=== PATIENT | male | born 1990 | race Two or more races ===

== ENCOUNTER 2024-03-27 03:49 | Emergency (ER) | payer SELFPAY ==
[~2024-03-27] VITALS: Ht 172.7 cm; Wt 78.2 kg
[2024-03-27 08:07] VITALS: BP 122/74; PULSE 68; RESP 18; TEMP 98.8; O2SAT 98
[2024-03-27 09:06] LABS: Basophils # (auto) 0.1 10 ^3/uL (0-0.2); Eosinophils # (auto) 0.1 10 ^3/uL (0-0.8); Hematocrit 43.7 % (41.0-53.0); Lymphocytes # (auto) 2.4 10 ^3/uL (0.4-5.4); Lymphocytes % (auto) 33.9 % (10.0-50.0); Mean Corpuscular Hemoglobin 29.8 pg (28.0-32.0); Mean Corpuscular Hgb Conc. 34.4 g/dL (32.0-36.0); Mean Corpuscular Volume 86.5 fL (80.0-100.0); Monocytes # (auto) 0.4 10 ^3/uL (0-1.3); Monocytes % (auto) 6.3 % (0.0-12.0); Neutrophils # (auto) 4.1 10 ^3/uL (1.6-8.6); Neutrophils % (auto) 57.8 % (37.0-80.0); Nucleated Red Blood Cells % 0.1 %; Red Blood Cells 5.05 10^6/uL (4.5-5.90); Red Cell Distribution Width 13.3 % (11.8-14.3); White Blood Cell 7.1 10^3/uL (4.4-10.8)
[2024-03-27 09:12] LABS: Urine Bacteria None Seen /hpf (None Seen); Urine WBC None Seen /hpf (0 - 3)
[2024-03-27 09:15] LABS: Chloride 108 mmol/L (98-107); Potassium 4.1 mmol/L (3.5-5.1); Sodium 138 mmol/L (136-145)
[2024-03-27 09:16] LABS: Anion Gap 4 (5-15); Calcium 9.6 mg/dL (8.7-10.4); Carbon Dioxide 26 mmol/L (20-30)
[2024-03-27 09:21] LABS: BUN/Creatinine Ratio 10.7 (10.0-20.0); Blood Urea Nitrogen 9 mg/dL (9-23); Glucose 103 mg/dL (74-106)
[2024-03-27 09:53] LABS: Urine Blood Negative /uL (Negative); Urine Clarity Clear (Clear); Urine Color Yellow (Yellow); Urine Mucus FEW (None Seen); Urine Protein, UAD Negative (Negative); Urine Specific Gravity 1.029 (1.001-1.035); Urine Urobilinogen Normal (Negative)
[2024-03-27] MEDS ORDERED: LIDO5DIS21 TOP (10:06)
== END 2024-03-27 10:18 | disposition home or self-care (01) ==
LOC: ER 03:49
DX: S33.5XXA Sprain of ligaments of lumbar spine, initial encounter (principal); X58.XXXA Exposure to other specified factors, initial encounter; Y93.89 Activity, other specified; Y92.89 Other specified places as the place of occurrence of the external cause; Y99.8 Other external cause status
CPT/HCPCS: 36415; 72100; 80048; 81001; 85025

== ENCOUNTER 2024-08-01 05:11 | Emergency (ER) | payer MEDICAID, OTHER ==
[~2024-08-01] VITALS: Ht 172.7 cm; Wt 75.0 kg
[~2024-08-01 05:11] MED LIST: LIDO5DIS21 TOP
[2024-08-01 06:45] VITALS: BP 142/88; PULSE 105; RESP 19; TEMP 97.8; O2SAT 98
--- NOTE | 2024-08-01 06:57 | ED.PDOC ---
Musculoskeletal HPI Comments 34 y/o male pt presents to the clinic for bilateral hand pain and right foot pain. Pt reports that the pain started approximately 2 weeks ago. Pt reports that the pain in his hands is in the 4th digit of bilateral hands and that the pain increases when out in the cold. Pt believes that the pain is due to folding a lot of blankets and clothing. Pt reports that he has been living on and off the streets but that 2 weeks ago he moved back home with his mother. Pt is most concerned with the pain in his right foot, 2nd and 3rd digits. Pt reports pain and decreased sensation. Pt feels like those toes are "." Chief Complaint: Cold Exposure Time Seen by MD: 06:47 Primary Care Provider: None Reviewed Notes: Nurses Notes, Medications Allergies: Coded Allergies: NO KNOWN ALLERGIES (Unverified , 03/27/24) Home Meds Active Scripts Ibuprofen Micronized (Ibuprofen) 600 Mg Tab, 600 MG PO TID PRN for 30 Days, #90 TAB 0 Refills Prov:CARLOS SALES COMPLEX CARE NURSE PRACTITIONER 08/01/24 Lidocaine (LIDODERM 5% TOPICAL PATCH) 1 Patch Ph, 1 PATCH TOP DAILY for 30 Days, #30 PATCH 0 Refills Prov:NATALIA SELLERS RESIDENCE COUNSELOR 03/27/24 Information Source: Patient Mode of Arrival: Ambulatory Past Medical History PAST MEDICAL HISTORY: Denies Surgical History: Denies all surgeries Family History Family History: Reviewed,noncontributory to illness Social History Smoker: Non-Smoker Alcohol: Denies ETOH Use Drugs: Denies Drug Use Constitutional: denies: chills, diaphoresis, fatigue, fever, malaise, sweats, weakness, others EENTM: denies: blurred vision, double vision, ear bleeding, ear discharge, ear drainage, ear pain, ear ringing, eye pain, eye redness, hearing loss, mouth pain, mouth swelling, nasal discharge, nose bleeding, nose congestion, nose pain, photophobia, tearing, throat pain, throat swelling, voice changes, others Respiratory: denies: cough, hemoptysis, orthopnea, SOB at rest, shortness of breath, SOB with excertion, stridor, wheezing, others Cardiovascular: denies: chest pain, dizzy spells, diaphoresis, Dyspnea on exertion, edema, irregular heart beat, left arm pain, lightheadedness, palpitations, PND, syncope, others Gastrointestinal: denies: abdomen distended, abdominal pain, blood streaked bowels, constipated, diarrhea, dysphagia, difficulty swallowing, hematemesis, melena, nausea, poor appetite, poor fluid intake, rectal bleeding, rectal pain, vomiting, others Genitourinary: denies: burning, dysuria, flank pain, frequency, hematuria, incontinence, penile discharge, penile sore, pain, testicle pain, testicle swelling, urgency, others Neurological: denies: dizziness, fainting, headache, left sided numbness, left sided weakness, numbness, paresthesia, pre-existing deficit, right sided numbness, right sided weakness, seizure, speech problems, tingling, tremors, weakness, others Musculoskeletal: reports: joint pain (pain in the 2nd and 3rd digitd of the right foot and the 3rd digit of bilateral hands) Integumetry: denies: bruises, change in color, change in hair/nails, dryness, laceration, lesions, lumps, rash, wounds, others Allergic/Immunocompromised: denies: Difficulty Healing, Frequent Infections, Hives, Itching, others Hematologic/Lymphatic: denies: anemia, blood clots, easy bleeding, easy bruising, swollen glands, others Endocrine: denies: excessive hunger, excessive sweating, excessive thirst, excessive urination, flushing, intolerance to cold, intolerance to heat, unexplained weight gain, unexplained weight loss, others Psychiatric: denies: anxiety, bipolar disorder, depression, hopeless, panic disorder, schizophrenia, sleepless, suicidal, others All Other Systems: Reviewed and Negative Physical Exam General Appearance: No Apparent Distress, Normal HEENT: Normal ENT Inspection, Pharynx Normal, TMs Normal Neck: Full Range of Motion, Non-Tender, Normal, Normal Inspection Respiratory: Chest Non-Tender, Lungs Clear, No Accessory Muscle Use, No Respiratory Distress, Normal Breath Sounds Cardiovascular: No Edema, No JVD, No Murmur, No Gallop, Normal Peripheral Pulses, Regular Rate/Rhythm Breast Exam: Deferred Gastrointestinal: No Organomegaly, Non Tender, No Pulsatile Mass, Normal Bowel Sounds, Soft Genitalia: Deferred Pelvic: Deferred Rectal: Deferred Extremities: No calf tenderness, Normal capillary refill, Normal inspection, Normal range of motion, Non-tender, No pedal edema Musculoskeletal : Location: Right Extremity Location: Foot Apperance: Normal, Tenderness: Mild (2nd and 3rd digit of the right foot) Neurologic: Alert, orthodontic assistant II-XII nml as Tested, No Motor Deficits, Normal Affect, Normal Mood, No Sensory Deficits Cerebellar Function: Normal Reflexes: Normal Skin: Dry, Normal Color, Warm Lymphatic: No Adenopathy Was a procedure done? Was a procedure done?: No Differential Diagnosis EXT Differential Diagnosis: Fracture, Sprain, Contusion, Arthritis X-Ray, Labs, Meds, VS Vital Signs Date Time Temp Pulse Resp B/P (MAP) Pulse Ox O2 Delivery O2 Flow Rate FiO2 08/01/24 06:45 97.8 105 19 142/88 (106) 98 97.8 08/01/24 06:45 105 19 98 Room Air 08/01/24 05:23 97.8 105 19 142/88 (106) 98 PATIENT: TANNER PITTMAN JRACCT: [id number]: [id number] : 1990 LOC: ER ROOM / BED: / AGE / SEX: 34 / M ADM STATUS: REG ER SERVICE 4 ORDERING PHYSICIAN: CARLOS SALES PROCEDURE(s): RFOOT - R FOOT 3 VIEW XRAY REASON: decreased sensation to the second and thrid digit of foot ORDER NUMBER(s): [id number], ACCESSION NUMBER(s): [id number] PROCEDURE: Right foot radiographs. INDICATION: Decreased sensation to the second and thrid digit of foot TECHNIQUE: 3 views of the right foot were obtained. COMPARISON: None FINDINGS: There is no evidence of fracture or dislocation. Joint spaces are maintained. The soft tissues are unremarkable. IMPRESSION: 1. No fracture or dislocation. ATED BY: ANAMIKA GARNICA MD DICTATED DATE/TIME: 08/01/24735 SIGNED BY: ANAMIKA GARNICA MD SIGNED DATE/TIME: 08/01/24735 CC: X-Ray, Labs, Meds, VS Comment On re-evaluation patient has symptomatic improvement. Patient is stable for discharge at this time. All test results and diagnostic imaging have been interpreted. All diagnostic findings, discharge care, and education instruction provided to the patient. Follow-up with PCP in 2-3 days Patient verbalized understanding, discharge instructions and agrees to treatment plan Vital signs are stable Patient is ambulatory Patient advised of which symptoms necessitate a return visit to the emergency room. Patient to return emergency room for any new worsening symptoms. Patient is aware that the purpose of this visit is for an acute medical emergency requiring emergent stabilization. Chronic conditions, including malignancies have not been ruled out. Patient is instructed to follow up with P CP as directed for continued care and workup. If unable to arrange follow up, patient is to return to the emergency room for reassessment. Patient was given verbal and written discharge instructions and acknowledges understanding Time of 1ST Reevaluation: 07:25 Reevaluation 1ST: Improved Patient Education/Counseling: Diagnosis, Treatment, Prognosis Family Education/Counseling: No Family Present Departure 1 Departure Time of Disposition: 07:47 Impression: Primary Impression: Foot pain, right Additional Impressions: Finger pain, left Finger pain, right Disposition: 01 HOME / SELF CARE / HOMELESS Condition: Stable e-Prescriptions Ibuprofen Micronized (Ibuprofen) 600 Mg Tab 600 MG PO TID PRN for 30 Days, #90 TAB 0 Refills Prov: CARLOS SALES 08/01/24 Discharged With: Self Critical Care Note Critical Care Time?: No Stability Stability form required: No Heart Score Heart Score: Heart Score Response (Comments) Value History N/A 0 EKG N/A 0 Age N/A 0 Risk Factors N/A 0 Troponin N/A 0 Total 0 CARLOS SALES [facility] Aug 01, 2024 06:57
--- NOTE | 2024-08-01 07:38 | DVH ---
PROCEDURE: Right foot radiographs. INDICATION: Decreased sensation to the second and thrid digit of foot TECHNIQUE: 3 views of the right foot were obtained. COMPARISON: None FINDINGS: There is no evidence of fracture or dislocation. Joint spaces are maintained. The soft tis sues are unremarkable. IMPRESSION: 1. No fracture or dislocation.
[2024-08-01] MEDS ORDERED: IBUP1TAB5 PO (07:47)
== END 2024-08-01 08:17 | disposition home or self-care (01) ==
LOC: ER 05:11
DX: M79.671 Pain in right foot (principal); M79.644 Pain in right finger(s); M79.645 Pain in left finger(s); Z79.899 Other long term (current) drug therapy
CPT/HCPCS: 73630

== ENCOUNTER 2024-09-12 01:05 | Emergency (ER) | payer MEDICAID ==
[~2024-09-12] VITALS: Ht 172.7 cm; Wt 69.9 kg
[~2024-09-12 01:05] MED LIST changes: +IBUP1TAB5 PO
[2024-09-12 02:47] VITALS: BP 137/91; PULSE 88; RESP 20; TEMP 97.4; O2SAT 100
[2024-09-12] MEDS ORDERED: ACET500T58 PO (03:05)
--- NOTE | 2024-09-12 03:05 | ED.PDOC ---
Musculoskeletal HPI Comments 34-YEAR-OLD MALE PRESENTS TO ER WITH COMPLAINTS OF BILATERAL KNEE PAIN X3 DAYS. PATIENT REPORTS THAT HE STARTED EXPERIENCING BILATERAL KNEE PAIN X3 DAYS "DUE TO THE COLD WEATHER". DENIES ANY TRAUMA/FALLS. HE RATES HIS CURRENT PAIN A 7/10 TO BILATERAL KNEES WITHOUT RADIATION. PATIENT PRESENTS TO ER AMBULATORY ON ARRIVAL, WITH STEADY GAIT, IN NO DISTRESS. DENIES SKIN CHANGES, NUMBNESS/TINGLING, FEVER, HEAD INJURY OR ANY FURTHER SYMPTOMS/COMPLAINTS Chief Complaint: Head Injury Time Seen by MD: 01:25 Primary Care Provider: None Reviewed Notes: Nurses Notes, Medications, Allergies Allergies: Coded Allergies: NO KNOWN ALLERGIES (Unverified , 03/27/24) Home Meds Active Scripts Acetaminophen (Acetaminophen) 500 Mg Tab, 500 MG PO Q4HPRN PRN, #30 TAB 0 Refills Prov:KELLY LANZA 09/12/24 Ibuprofen Micronized (Ibuprofen) 600 Mg Tab, 600 MG PO TID PRN for 30 Days, #90 TAB 0 Refills Prov:CARLOS SALES 08/01/24 Lidocaine (LIDODERM 5% TOPICAL PATCH) 1 Patch Ph, 1 PATCH TOP DAILY for 30 Days, #30 PATCH 0 Refills Prov:NATALIA SELLERS NP 03/27/24 Information Source: Patient Mode of Arrival: Ambulatory Past Medical History PAST MEDICAL HISTORY: Denies Surgical History: Denies all surgeries Family History Family History: Unknown Social History Smoker: Non-Smoker Alcohol: Denies ETOH Use Drugs: Denies Drug Use Lives In: Homeless Constitutional: denies: chills, diaphoresis, fatigue, fever, malaise, sweats, weakness, others EENTM: denies: blurred vision, double vision, ear bleeding, ear discharge, ear drainage, ear pain, ear ringing, eye pain, eye redness, hearing loss, mouth pain, mouth swelling, nasal discharge, nose bleeding, nose congestion, nose pain, photophobia, tearing, throat pain, throat swelling, voice changes, others Respiratory: denies: cough, hemoptysis, orthopnea, SOB at rest, shortness of breath, SOB with excertion, stridor, wheezing, others Cardiovascular: denies: chest pain, dizzy spells, diaphoresis, Dyspnea on exertion, edema, irregular heart beat, left arm pain, lightheadedness, palpitations, PND, syncope, others Gastrointestinal: denies: abdomen distended, abdominal pain, blood streaked bowels, constipated, diarrhea, dysphagia, difficulty swallowing, hematemesis, melena, nausea, poor appetite, poor fluid intake, rectal bleeding, rectal pain, vomiting, others Genitourinary: denies: burning, dysuria, flank pain, frequency, hematuria, incontinence, penile discharge, penile sore, pain, testicle pain, testicle swelling, urgency, others Neurological: denies: dizziness, fainting, headache, left sided numbness, left sided weakness, numbness, paresthesia, pre-existing deficit, right sided numbness, right sided weakness, seizure, speech problems, tingling, tremors, weakness, others Musculoskeletal: reports: others ( STATED IN HPI) Integumetry: denies: bruises, change in color, change in hair/nails, dryness, laceration, lesions, lumps, rash, wounds, others Allergic/Immunocompromised: denies: Difficulty Healing, Frequent Infections, Hives, Itching, others Hematologic/Lymphatic: denies: anemia, blood clots, easy bleeding, easy b ruising, swollen glands, others Endocrine: denies: excessive hunger, excessive sweating, excessive thirst, excessive urination, flushing, intolerance to cold, intolerance to heat, unexplained weight gain, unexplained weight loss, others Psychiatric: denies: anxiety, bipolar disorder, depression, hopeless, panic disorder, schizophrenia, sleepless, suicidal, others Physical Exam General Appearance: No Apparent Distress HEENT: PERRL/EOMI Neck: Full Range of Motion, Non-Tender, Normal Respiratory: Chest Non-Tender, Lungs Clear, No Accessory Muscle Use, No Respiratory Distress, Normal Breath Sounds Cardiovascular: No Murmur, No Gallop, Regular Rate/Rhythm Breast Exam: Deferred Gastrointestinal: NOT DONE Genitalia: Deferred Pelvic: Deferred Rectal: Deferred Extremities: No calf tenderness, Normal capillary refill, Normal range of motion, No pedal edema Musculoskeletal : Extremity Location: Knee (NO TTP TO BILATERAL KNEES NOTED. NEGATIVE ANTERIOR DRAWER TEST BILATERALLY. NEGATIVE CARLYLE'S TEST BILATERALLY. NO SKIN CHANGES TO BILATERAL KNEES APPRECIATED. PULSES INTACT. GAIT INTACT WITHOUT ABNORMALITY) Neurologic: Alert, medication aide II-XII nml as Tested, No Motor Deficits, Normal Affect, Normal Mood, No Sensory Deficits Cerebellar Function: Normal Reflexes: Normal Skin: Dry, Normal Color, Warm Peripheral Pulses: 2+ femoral (R), 2+ femoral (L), 2+ dorsalis pedis (R), 2+ dorsalis pedis (L) Lymphatic: No Adenopathy Was a procedure done? Was a procedure done?: No Sedation Sedation?: No Differential Diagnosis EXT Differential Diagnosis: Cellulitis, Fracture, Dislocation, Neurovascular injury X-Ray, Labs, Meds, VS Vital Signs Date Time Temp Pulse Resp B/P (MAP) Pulse Ox O2 Delivery O2 Flow Rate FiO2 09/12/24 02:47 97.4 88 20 137/91 (106) 100 97.4 09/12/24 01:19 100 Room Air 0 09/12/24 01:19 97.4 88 18 137/91 (106) 100 PATIENT NEUROVASCULARLY INTACT AND IN NO DISTRESS DURING ER VISIT/PRIOR TO DISCHARGE ADVISED ON REST/ NO STRENUOUS ACTIVITY AND ELEVATION ADVISED TO FOLLOW UP WITH PCP IN 1-2 DAYS PATIENT VERBALIZED UNDERSTANDING AND AGREEABLE WITH CURRENT PLAN OF CARE ADVISED TO RETURN TO ER IMMEDIATELY IF SYMPTOMS WORSEN Time of 1ST Reevaluation: 02:44 Reevaluation 1ST: N/A Patient Education/Counseling: Diagnosis, Treatment, Prognosis, Need For Follow Up Family Education/Counseling: No Family Present Departure 1 Departure Time of Disposition: 03:02 Impression: Primary Impression: Arthralgia of both knees Disposition: 01 HOME / SELF CARE / HOMELESS Condition: Stable e-Prescriptions Acetaminophen (Acetaminophen) 500 Mg Tab 500 MG PO Q4HPRN PRN, #30 TAB 0 Refills Prov: KELLY LANZA 09/12/24 Discharged With: Self Critical Care Note Critical Care Time?: No Stability Stability form required: No Heart Score Heart Score: Heart Score Response (Comments) Value History N/A 0 EKG N/A 0 Age N/A 0 Risk Factors N/A 0 Troponin N/A 0 Total 0 KELLY LANZA Sep 12, 2024 03:05
[2024-09-13] MEDS ORDERED: AUG875T PO (21:46)
[2024-09-13] MEDS ORDERED: IBUP-1456 PO (21:46)
== END 2024-09-12 03:43 | disposition home or self-care (01) ==
LOC: ER 01:05
DX: M25.562 Pain in left knee (principal); M25.561 Pain in right knee; Z79.899 Other long term (current) drug therapy; Z59.00 Homelessness unspecified

== ENCOUNTER 2024-09-13 19:18 | Emergency (ER) | payer MEDICAID ==
[~2024-09-13] VITALS: Ht 172.7 cm; Wt 71.7 kg
[~2024-09-13 19:18] MED LIST changes: +ACET500T58 PO
[2024-09-13 20:52] VITALS: BP 133/67; PULSE 92; RESP 19; TEMP 97.9; O2SAT 98
--- NOTE | 2024-09-13 21:01 | ED.PDOC ---
Eye-HPI HPI Comments This is a 34-year-old male presents to the ED chief complaint throat pain. He notes moderate to severe throat pain on and off x1 year. Difficulty swallowing. [place] dental pain 8/10 on pain scale throbbing in nature nonradiating type pain worse with cold and hot liquids. Fever or chills. Chest pain for the donna thing or shortness of breath. Chief Complaint: Sore Throat Time Seen by MD: 19:37 Primary Care Provider: None Reviewed Notes: Nurses Notes, Medications, Allergies Allergies: Coded Allergies: NO KNOWN ALLERGIES (Unverified , 03/27/24) Home Meds Active Scripts Ibuprofen (Ibuprofen) 800 Mg Tab, 1 TAB PO TID PRN for 4 Days, #12 TAB Prov:EDSON GLOVER SENIOR IT SECURITY ANALYST 09/13/24 Amoxicillin & Pot Clavulanate (AUGMENTIN TABLET) 875 Mg Tb, 1 TAB PO BID for 7 Days, #14 TAB Prov:EDSON GLOVER SENIOR IT SECURITY ANALYST 09/13/24 Acetaminophen (Acetaminophen) 500 Mg Tab, 500 MG PO Q4HPRN PRN, #30 TAB 0 Refills Prov:KELLY LANZA 09/12/24 Ibuprofen Micronized (Ibuprofen) 600 Mg Tab, 600 MG PO TID PRN for 30 Days, #90 TAB 0 Refills Prov:CARLOS SALES SENIOR IT SECURITY ANALYST 08/01/24 Lidocaine (LIDODERM 5% TOPICAL PATCH) 1 Patch Ph, 1 PATCH TOP DAILY for 30 Days, #30 PATCH 0 Refills Prov:NATALIA SELLERS CYBER SECURITY ANALYST 03/27/24 Information Source: Patient Mode of Arrival: Ambulatory Past Medical History PAST MEDICAL HISTORY: Denies Surgical History: Denies all surgeries Family History Family History: Reviewed,noncontributory to illness, Unknown Social History Smoker: Non-Smoker Alcohol: Denies ETOH Use Drugs: Denies Drug Use Lives In: Homeless Constitutional: denies: chills, diaphoresis, fatigue, fever, malaise, sweats, weakness, others EENTM: reports: others (Pain dental); denies: blurred vision, double vision, ear bleeding, ear discharge, ear drainage, ear pain, ear ringing, eye pain, eye redness, hearing loss, mouth pain, mouth swelling, nasal discharge, nose bleeding, nose congestion, nose pain, photophobia, tearing, throat pain, throat swelling, voice changes Respiratory: denies: cough, hemoptysis, orthopnea, SOB at rest, shortness of breath, SOB with excertion, stridor, wheezing, others Cardiovascular: denies: chest pain, dizzy spells, diaphoresis, Dyspnea on exertion, edema, irregular heart beat, left arm pain, lightheadedness, palpitations, PND, syncope, others Gastrointestinal: denies: abdomen distended, abdominal pain, blood streaked bowels, constipated, diarrhea, dysphagia, difficulty swallowing, hematemesis, melena, nausea, poor appetite, poor fluid intake, rectal bleeding, rectal pain, vomiting, others Genitourinary: denies: burning, dysuria, flank pain, frequency, hematuria, incontinence, penile discharge, penile sore, pain, testicle pain, testicle swelling, urgency, others Neurological: denies: dizziness, fainting, headache, left sided numbness, left sided weakness, numbness, paresthesia, pre-existing deficit, right sided numbness, right sided weakness, seizure, speech problems, tingling, tremors, weakness, others Musculoskeletal: denies: back pain, gout, joint pain, joint swelling, muscle pain, muscle stiffness, neck pain, others Integumetry: denies: bruises, change in color, change in hair/nails, dryness, laceration, lesions, lumps, rash, wounds, others Allergic/Immunocompromised: denies: Difficulty Healing, Frequent Infections, Hives, Itching, others Hematologic/Lymphatic: denies: anemia, blood clots, easy bleeding, easy bruising, swollen glands, others Endocrine: denies: excessive hunger, excessive sweating, excessive thirst, excessive urination, flushing, intolerance to cold, intolerance to heat, unexplained weight gain, unexplained weight loss, others Psychiatric: denies: anxiety, bipolar disorder, depression, hopeless, panic di sorder, schizophrenia, sleepless, suicidal, others Physical Exam General Appearance: No Apparent Distress, Normal HEENT: Pharynx Normal, TMs Normal Neck: Full Range of Motion, Non-Tender Respiratory: Lungs Clear, No Respiratory Distress, Normal Breath Sounds Cardiovascular: No Murmur, Normal Peripheral Pulses, Regular Rate/Rhythm Breast Exam: Deferred Gastrointestinal: Non Tender, Soft Genitalia: Deferred Pelvic: Deferred Rectal: Deferred Extremities: Normal capillary refill, Normal inspection, Normal range of motion, Non-tender, No pedal edema Musculoskeletal : Apperance: Normal Neurologic: Alert, ward service supervisor II-XII nml as Tested, No Motor Deficits, Normal Affect, Normal Mood, No Sensory Deficits Cerebellar Function: Normal Reflexes: Normal Skin: Dry, Normal Color, Warm Lymphatic: No Adenopathy Was a procedure done? Was a procedure done?: No EENT DIFF Eye: N/A Sore Throat: Streptococcal, Viral Pharyngitis X-Ray, Labs, Meds, VS Vital Signs Date Time Temp Pulse Resp B/P (MAP) Pulse Ox O2 Delivery O2 Flow Rate FiO2 09/13/24 20:52 92 19 98 Room Air 09/13/24 20:52 97.9 92 19 133/67 (89) 98 97.9 09/13/24 19:52 97.9 95 16 133/83 (100) 98 Current Medications Medications (Trade) Dose Ordered Sig/[place] Route Start Time Stop Time Status Last Admin Ketorolac Tromethamine (Toradol Injection) 60 mg ONCE ONCE IM 09/13/24 20:45 09/13/24 20:46 DC 09/13/24 21:09 Acetaminophen/ Hydrocodone Bitart ([place] 5/325MG Tab) 2 tab ONCE ONCE PO 09/13/24 20:45 09/13/24 20:46 DC 09/13/24 21:08 X-Ray, Labs, Meds, VS Comment Patient given Toradol 60 mg IM and [place] 10 mg p.o. reports improvement in pain requesting discharge at this time script Augmentin and ibuprofen 800 mg advised to schedule an follow up with dental for resolution ER return precautions given patient indicated understanding. Time of 1ST Reevaluation: 21:00 Reevaluation 1ST: Improved Patient Education/Counseling: Diagnosis, Treatment, Prognosis, Need For Follow Up Family Education/Counseling: No Family Present Departure 1 Departure Time of Disposition: 21:00 Impression: Primary Impression: Dental infection Disposition: 01 HOME / SELF CARE / HOMELESS Condition: Stable e-Prescriptions Ibuprofen (Ibuprofen) 800 Mg Tab 1 TAB PO TID PRN for 4 Days, #12 TAB Prov: EDSON GLOVERP 09/13/24 Amoxicillin & Pot Clavulanate (AUGMENTIN TABLET) 875 Mg Tb 1 TAB PO BID for 7 Days, #14 TAB Prov: EDSON GLOVER 09/13/24 Discharged With: Self Critical Care Note Critical Care Time?: No Stability Stability form required: EDSON Potts Sep 13, 2024 21:01
[2024-09-13] MEDS: HYDROcodone-ACET 5/325MG TAB PO ONE (21:08)
[2024-09-13] MEDS: KETOROLAC TROMETH 60MG/2ML VIAL IM ONE (21:09)
[2024-09-13] MEDS ORDERED: AUG875T PO (21:46)
[2024-09-13] MEDS ORDERED: IBUP-1456 PO (21:46)
== END 2024-09-13 21:49 | disposition home or self-care (01) ==
LOC: ER 19:18
DX: K04.7 Periapical abscess without sinus (principal); Z59.00 Homelessness unspecified; Z79.899 Other long term (current) drug therapy
CPT/HCPCS: 96372; 99283; J1885

== ENCOUNTER 2025-07-04 10:46 | Emergency (ER) | payer MEDICAID ==
[~2025-07-04] VITALS: Ht 172.7 cm; Wt 85.0 kg
[2025-07-04 10:51] VITALS: BP 158/92; PULSE 114; RESP 15; TEMP 98; O2SAT 98
[2025-07-04] MEDS ORDERED: CEPH500C PO (12:03)
[2025-07-04] MEDS ORDERED: NAPR-746 PO (12:03)
--- NOTE | 2025-07-04 12:07 | ED.PDOC ---
History of Present Illness HPI Comments A 35 YEAR OLD MALE PRESENTS TO THE ED WITH COMPLAINT OF WOUND CHECK. PT STATES HE WAS USING HAIR CARE PRODUCTS AND ACCIDENTLY PUT IT ON FORESKIN OF PENIS. PT STATES HE HAS APPLIED IT TO THE TIP OF HIS PENILE TISSUE AND HAS SINCE BEEN HAVING BURNING LIKE SENSATION EVER SINCE AND CAME TODAY FOR FURTHER EVALUATION. PATIENT DENIES FEVER, CHILLS, SHORTNESS OF BREATH, CHEST PAIN, ABDOMINAL PAIN, NAUSEA, VOMITING, HEADACHE, OR OTHER COMPLAINTS. NO OTHER SYMPTOMS OR MODIFYING FACTORS AT THIS TIME. PATIENT IS ALERT, ORIENTED X 4, AND HAS STEADY GAIT. Chief Complaint: WOUND CHECK Time Seen by MD: 12:00 Primary Care Provider: None Reviewed Notes: Nurses Notes, Medications, Allergies Allergies: Coded Allergies: NO KNOWN ALLERGIES (Unverified , 03/27/24) Home Meds Active Scripts Naproxen (Naproxen) 500 Mg Tab, 500 MG PO BID, #30 TAB Prov:CUAUHTEMOC CANDELARIA 07/04/25 Cephalexin Monohydrate (Cephalexin) 500 Mg Cap, 1 CAP PO QID, #32 CAP Prov:CUAUHTEMOC CANDELARIA 07/04/25 Acetaminophen (Acetaminophen) 500 Mg Tab, 500 MG PO Q4HPRN PRN, #30 TAB 0 Refills Prov:KELLY LANZA 09/12/24 Ibuprofen Micronized (Ibuprofen) 600 Mg Tab, 600 MG PO TID PRN for 30 Days, #90 TAB 0 Refills Prov:CARLOS SALES FURNACE PUNCHER 08/01/24 Lidocaine (LIDODERM 5% TOPICAL PATCH) 1 Patch Ph, 1 PATCH TOP DAILY for 30 Days, #30 PATCH 0 Refills Prov:NATALIA SELLERS DIESEL INSPECTOR 03/27/24 Information Source: Patient Mode of Arrival: Ambulatory Severity: Moderate Timing: Days Medication Refill: For: Other (WOUND RECHECK ON THE TIP OF PENIS ) Past Medical History PAST MEDICAL HISTORY: Denies Surgical History: Denies all surgeries Family History Family History: Reviewed,noncontributory to illness, Unknown Social History Smoker: Non-Smoker Alcohol: Denies ETOH Use Drugs: Denies Drug Use Lives In: Homeless Constitutional: denies: chills, diaphoresis, fatigue, fever, malaise, sweats, weakness, others EENTM: denies: blurred vision, double vision, ear bleeding, ear discharge, ear drainage, ear pain, ear ringing, eye pain, eye redness, hearing loss, mouth pain, mouth swelling, nasal discharge, nose bleeding, nose congestion, nose pain, photophobia, tearing, throat pain, throat swelling, voice changes, others Respiratory: denies: cough, hemoptysis, orthopnea, SOB at rest, shortness of breath, SOB with excertion, stridor, wheezing, others Cardiovascular: denies: chest pain, dizzy spells, diaphoresis, Dyspnea on exertion, edema, irregular heart beat, left arm pain, lightheadedness, palpitations, PND, syncope, others Gastrointestinal: denies: abdomen distended, abdominal pain, blood streaked bowels, constipated, diarrhea, dysphagia, difficulty swallowing, hematemesis, melena, nausea, poor appetite, poor fluid intake, rectal bleeding, rectal pain, vomiting, others Genitourinary: denies: burning, dysuria, flank pain, frequency, hematuria, incontinence, penile discharge, penile sore, pain, testicle pain, testicle swelling, urgency, others Neurological: denies: dizziness, fainting, headache, left sided numbness, left sided weakness, numbness, paresthesia, pre-existing deficit, right sided numbness, right sided weakness, seizure, speech problems, tingling, tremors, weakness, others Musculoskeletal: denies: back pain, gout, joint pain, joint swelling, muscle pain, muscle stiffness, neck pain, others Integumetry: reports: lesions, wounds (FORESKIN OF PENILE TISSUE); denies: bruises, change in color, change in hair/nails, dryness, laceration, lumps, rash, others Allergic/Immunocompromised: denies: Difficulty Healing, Frequent Infections, Hives, Itching, others Hematologic/Lymphatic: denies: anemia, blood clots, easy bleeding, easy bruising, swollen glands, others Endocrine: denies: excessive hunger, excessive sweating, excessive thirst, excessive urination, flushing, intolerance to cold, intolerance to heat, unexplained weight gain, unexplained weight loss, others Psychiatric: denies: anxiety, bipolar disorder, depression, hopeless, panic disorder, schizophrenia, sleepless, suicidal, others All Other Systems: Reviewed and Negative Physical Exam General Appearance: No Apparent Distress, Normal HEENT: Normal ENT Inspection, PERRL/EOMI, Pharynx Normal, TMs Normal Neck: Full Range of Motion, Non-Tender, Normal, Normal Inspection Respiratory: Chest Non-Tender, Lungs Clear, No Accessory Muscle Use, No Respiratory Distress, Normal Breath Sounds Cardiovascular: No Edema, No JVD, No Murmur, No Gallop, Normal Peripheral Pulses, Regular Rate/Rhythm Breast Exam: Deferred Gastrointestinal: No Organomegaly, Non Tender, No Pulsatile Mass, Normal Bowel Sounds, Soft Genitalia: Penis (ABRASION WOUND ON THE TIP OF PENIS WITH MILD REDNESS AND S WELLING, NO DISCHARGE. ) Pelvic: Normal External Exam Rectal: Deferred Extremities: No calf tenderness, Normal capillary refill, Normal inspection, Normal range of motion, Non-tender, No pedal edema Musculoskeletal : Apperance: Normal Neurologic: Alert, examination supervisor II-XII nml as Tested, No Motor Deficits, Normal Affect, Normal Mood, No Sensory Deficits Cerebellar Function: Normal Reflexes: Normal Skin: Dry, Normal Color, Warm Peripheral Pulses: 2+ carotid (R), 2+ carotid (L) Lymphatic: No Adenopathy Was a procedure done? Was a procedure done?: No Differential Dx Considerations may include: CELLULITIS, BALANITIS, ALLERGIC REACTION, FORESKIN ABRASION, X-Ray, Labs, Meds, VS Vital Signs Date Time Temp Pulse Resp B/P (MAP) Pulse Ox O2 Delivery O2 Flow Rate FiO2 07/04/25 10:51 98.0 114 15 158/92 98 98.0 X-Ray, Labs, Meds, VS Comment COURSE: EXTERNAL MEDICAL RECORDS REVIEWED: [NONE] INDEPENDENT HISTORIANS: [NONE] SOCIAL DETERMINANTS OF HEALTH: [NONE] LABS ORDERED: NONE REVIEWED AND INTERPRETED RESULTS: NONE IMAGING ORDERED: NONE TREATMENTS ORDERED: NO PROCEDURES PERFORMED: NONE CRITICAL CARE TIME: NONE I HAVE DISCUSSED THE PATIENT WITH THE ATTENDING PHYSICIAN, DR. EDWARDS, HE AGREES WITH THE PATIENT'S PLAN OF CARE AND DISPOSITION. BASED ON HISTORY OF PRESENT ILLNESS, AND PHYSICAL EXAM, PATIENT WILL BE DISCHARGED HOME. DISCUSSED PLAN FOR DISCHARGE HOME WITH RX [KEFLEX AND NAPROXEN]. MEDICATION WARNINGS GIVEN. SHARED DECISION MAKING: DISCUSSED WITH PATIENT THAT THEIR WORKUP WAS NORMAL. PATIENT INSTRUCTED TO FOLLOW UP WITH PRIMARY CARE PROVIDER IN 1-2 DAYS FOR RE- EVALUATION OF SYMPTOMS. PATIENT VERBALIZES UNDERSTANDING TO RETURN TO ED FOR NEW OR WORSENING SYMPTOMS OR IF FOLLOW UP WITH PCP CANNOT BE OBTAINED. PATIENT FEELS COMFORTABLE GOING HOME AT THIS TIME. ALL QUESTIONS ADDRESSED AT TIME OF DISCHARGE. Time of 1ST Reevaluation: 12:30 Reevaluation 1ST: Improved Patient Education/Counseling: Diagnosis, Treatment, Need For Follow Up Family Education/Counseling: Diagnosis, Treatment, No Family Present Medical Screening: No EMC Exist At This Time SEPSIS Sepsis Screen Date sepsis recognized/suspect: Jul 04, 2025 Time Sepsis recognized/suspect: 1053 Recent Procedure: No On Antibiotic Therapy: No Respiratory Rate >20: No Heart Rate >90: Yes Temp<36 C (96.8 F) or >38.3 C: No SBP <90 or MAP <65 mmHG: No New Acute Mental Status Change: No Is the patient on CPAP, BIPAP,: No Vital Signs Date Time Temp Pulse Resp B/P (MAP) Pulse Ox O2 Delivery O2 Flow Rate FiO2 07/04/25 10:51 98.0 114 15 158/92 98 98.0 Departure 1 Departure Time of Disposition: 12:30 Impression: Primary Impression: Abrasion of penis Qualified Codes: S30.812A - Abrasion of penis, initial encounter Disposition: HOME / SELF CARE / HOMELESS Condition: Stable Additional Instructions: INSTRUCTIONS: FOLLOW-UP WITH PCP IN 1 TO 2 DAYS. TAKE MEDICATIONS PRESCRIBED. RETURN TO ED FOR ANY NEW OR WORSENING SYMPTOMS. e-Prescriptions Naproxen (Naproxen) 500 Mg Tab 500 MG PO BID, #30 TAB Prov: CUAUHTEMOC CANDELARIA 07/04/25 Cephalexin Monohydrate (Cephalexin) 500 Mg Cap 1 CAP PO QID, #32 CAP Prov: CUAUHTEMOC CANDELARIA 07/04/25 Discharged With: Self Critical Care Note Critical Care Time?: No Stability Stability form required: No Heart Score Heart Score: Heart Score Response (Comments) Value History N/A 0 EKG N/A 0 Age N/A 0 Risk Factors N/A 0 Troponin N/A 0 Total 0 I personally scribed for CUAUHTEMOC CANDELARIA ([email or web address]) on 07/04/25 at 12:07. Electro nically submitted by Jakob WORRELL). UCAUHTEMOC CANDELARIA Jul 04, 2025 12:07
== END 2025-07-04 12:05 | disposition home or self-care (01) ==
LOC: ER 10:46
DX: S30.812A Abrasion of penis, initial encounter (principal); X58.XXXA Exposure to other specified factors, initial encounter; Y93.89 Activity, other specified; Y92.89 Other specified places as the place of occurrence of the external cause; Y99.8 Other external cause status

== ENCOUNTER 2025-08-15 18:53 | Emergency (ER) | payer MEDICAID ==
[~2025-08-15] VITALS: Ht 172.7 cm; Wt 80.3 kg
[~2025-08-15 18:53] MED LIST changes: +CEPH500C PO; +NAPR-746 PO
[2025-08-15 18:54] VITALS: BP 168/119; PULSE 98; RESP 16; TEMP 98.8; O2SAT 99
== END 2025-08-15 20:18 | disposition left against medical advice (07) ==
LOC: ER 18:53
DX: M54.50 Low back pain, unspecified (principal)